=== PATIENT | male | born 1935 | race Caucasian/White ===

== ENCOUNTER 2020-07-02 14:40 | Emergency (ER) | payer OTHER, MEDICAID ==
[~2020-07-02] VITALS: Ht 188 cm; Wt 104.3 kg
--- NOTE | 2020-07-02 14:40 | NUR ---
PT BIBRA FROM HOME C/O PANIC ATTACK X 6 HRS AGO. PT IS AAOX3, NOT IN RESPIRATORY DISTRESS, HOOKED TO ACTUARIAL CLERK. KEPT RESTED AND COMFORTABLE. WILL CONTINUE TO MONITOR.
--- NOTE | 2020-07-02 15:05 | NUR ---
AT BEDSIDE FOR EVAL.
--- NOTE | 2020-07-02 15:19 | NUR ---
CALLED [facility] FOR SNAPSHOT/MEDICAL RECORDS. FAX NUMBER PROVIDED.
--- NOTE | 2020-07-02 15:20 | NUR ---
IV LINE ESTABLISHED BLOOD DRAWN AND SENT TO LAB.
--- NOTE | 2020-07-02 15:25 | NUR ---
URINAL GIVEN BUT UNABLE TO PROVIDE URINE SPECIMEN THIS TIME.
[2020-07-02 15:26] LABS: ABG BASE EXCESS 1.5 mmol/L; ABG OXYGEN SATURATION 95.3 % (92.0-98.5); ABG PCO2 32.8 mmHg (35.0-45.0); ABG PH 7.487 (7.350-7.450); ABG PO2 78.3 mmHg (75.0-100.0); AaDO2 32.2 mmHg; COHb 1.2 % (0.5-1.5); MetHb 0.5 % (0.0-1.5); O2Hb 93.7 % (94.0-97.0); SITE, ABG Right Radial; VENT MODE, BG room air
--- NOTE | 2020-07-02 15:27 | NUR ---
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 [phone]
[2020-07-02] MEDS ORDERED: LORAZEPAM 0.5 MG TABLET PO ONE (15:30)
[2020-07-02] MEDS ORDERED: LORAZEPAM 0.5 MG TABLET ONE (15:30)
[2020-07-02 15:44] LABS: BASOPHILS # (AUTO) 0.1 /CMM (0.0-0.2); BASOPHILS % (AUTO) 0.8 % (0.0-2.0); EOSINOPHILS % (AUTO) 1.4 % (0.0-6.0); HEMATOCRIT 40 % (39-51); HEMOGLOBIN 13.3 g/dL (13.5-17.5); LYMPHOCYTES # (AUTO) 1.1 /CMM (0.8-4.8); LYMPHOCYTES % (AUTO) 14.2 % (20.0-44.0); MEAN CORPUSCULAR HGB CONC 33 g/dl (31.0-36.0); MEAN CORPUSCULAR VOLUME 100 fL (80-96); MONOCYTES # (AUTO) 0.8 /CMM (0.1-1.30); MONOCYTES % (AUTO) 10.3 % (2.0-12.0); NEUTROPHILS # (AUTO) 5.6 /CMM (1.8-8.9); NEUTROPHILS % (AUTO) 73.3 % (43.0-81.0); PLATELET COUNT (AUTO) 165 /CMM (150-450); RED BLOOD CELL COUNT(AUTO) 4.04 MIL/uL (4.5-6.0); WHITE BLOOD COUNT (AUTO) 7.6 K/uL (4.3-11.0)
--- NOTE | 2020-07-02 15:53 | NUR ---
PT IS BACK FROM THE CT SCAN.
[2020-07-02 15:54] LABS: SERUM AMMONIA 19 umol/L (11-32)
[2020-07-02 16:11] LABS: CALCIUM, SERUM 8.4 mg/dL (8.5-10.1); CARBON DIOXIDE 24 mmol/L (21-32); CHLORIDE 96 mmol/L (98-107); CREATININE 0.8 mg/dL (0.6-1.3); GLUCOSE 93 mg/dL (74-106); SODIUM SERUM 129 mmol/L (136-145); UREA NITROGEN, BLOOD 17 mg/dL (7-18)
[2020-07-02 16:16] LABS: ALANINE AMINOTRANSFERASE 28 U/L (12-78); ALCOHOL, BLOOD < 3 mg/dL (0-0); ALKALINE PHOSPHATASE 22 U/L (46-116); ASPARTATE AMINOTRANSFERASE 21 U/L (15-37); BILIRUBIN,DIRECT 0.4 mg/dL (0.0-0.2); BILIRUBIN,TOTAL 1.3 mg/dL (0.2-1.0); TOTAL PROTEIN, SERUM 6.3 g/dL (6.4-8.2)
--- NOTE | 2020-07-02 16:37 | NUR ---
PT STILL UNABLE TO PROVIDE URINE SPECIMEN THIS TIME.
[2020-07-02] MEDS ORDERED: LORAZEPAM 1 MG TABLET ONE (16:57)
[2020-07-02] MEDS ORDERED: LORAZEPAM 1 MG TABLET PO ONE (17:00)
[2020-07-02 17:23] LABS: THYROID STIMULATING HORMONE 2.174 uIU/mL (0.358-3.74)
--- NOTE | 2020-07-02 17:30 | NUR ---
URINE SPECIMEN COLLECTED AND SENT TO LAB.
--- NOTE | 2020-07-02 17:55 | NUR ---
LAB CALLED COVID-19 NEG. (-)
--- NOTE | 2020-07-02 18:20 | NUR ---
CALLED [facility] FOR [facility] [phone] NO INDICATION OF SPECIFIC BED AT THIS TIME.
--- NOTE | 2020-07-02 19:02 | NUR ---
PT GOING TO [facility] ICU [address] VIRIDIANA MADDOX. PLEASE CALL [phone] FOR REPORT. ETA IS [address] [facility].
[2020-07-02] MEDS ORDERED: hydrALAZINE HCL IV 20 MG VIAL ONE (19:22)
--- NOTE | 2020-07-02 19:24 | NUR ---
REPORT CLAUDE TO GIOVANNY RAMON OF [facility] FOR DAWNA.
[2020-07-02] MEDS ORDERED: hydrALAZINE HCL IV 20 MG VIAL IV ONE (19:30)
[2020-07-02 19:44] VITALS: BP 170/78
--- NOTE | 2020-07-02 19:44 | NUR ---
PT TRANSFERED PER [employer] [employer].
== END 2020-07-02 19:48 | disposition short-term general hospital (02) ==
LOC: ER 14:40
DX: I62.03 Nontraumatic chronic subdural hemorrhage (principal); G93.49 Other encephalopathy; R40.2412 Glasgow coma scale score 13-15, at arrival to emergency department; J34.1 Cyst and mucocele of nose and nasal sinus; Z86.73 Personal history of transient ischemic attack (TIA), and cerebral infarction without residual deficits; I48.91 Unspecified atrial fibrillation; E87.1 Hypo-osmolality and hyponatremia; R79.89 Other specified abnormal findings of blood chemistry; Z20.828 Contact with and (suspected) exposure to other viral communicable diseases; I11.9 Hypertensive heart disease without heart failure; Z79.899 Other long term (current) drug therapy; Z79.01 Long term (current) use of anticoagulants; E78.00 Pure hypercholesterolemia, unspecified; M10.9 Gout, unspecified; F41.9 Anxiety disorder, unspecified; J90 Pleural effusion, not elsewhere classified
CPT/HCPCS: 36415; 36600; 70450; 71045; 80048; 80076; 80305; 80307; 82140; 82962; 84443; 84484; 85025; 85730; 87426; 93005; 96374; 99291; C9803; J0360; G0480